=== PATIENT | female | born 1945 | race Caucasian/White ===

== ENCOUNTER 2017-03-24 13:02 | Outpatient (CLI) | payer MEDICARE ==
--- NOTE | 2017-03-24 15:26 | MRI ---
MRI THORACIC SPINE WITHOUT CONTRAST: Date: 03/24/17 HISTORY: Pain the thoracic spine. FINDINGS: The vertebral bodies demonstrate mild heterogeneity in the bone marrow signal. There is minimal ante rior wedging of the superior end plates of the mid thoracic vertebral bodies. No edema is seen to cardoza ggest acute compression fractures. There are degenerative changes in the thoracic spine manifested b y disc osteophyte complexes, costovertebral joint, and facet joint hypertrophic changes. There is mi ld neural foraminal stenosis at T1-2 and T2-3 levels. No significant effacement of the anterior thec al sac or impingement of the thoracic spinal cord is identified. The thoracic spinal cord demonstrat es no evidence of cord edema, syringomyelia, or myelomalacia. IMPRESSION: Thoracic spondylosis with mild neural foraminal stenosis at T1-2 and T2-3 levels, left greater than right. POS: DOMONIQUE
--- NOTE | 2017-03-24 15:42 | MRI ---
MRI OF THE CERVICAL SPINE: Date: 03-24-17 Comparison: None. History: Cervical radiculopathy. Technique: Multiplanar, multisequence MR imaging of the cervical spine provided without contrast. FINDINGS: Incompletely assessed T2 hyperintensity is noted within the imaged middle cranial fossa on the left, which probably represents a partially imaged arachnoid cyst. Please consider head CT for further as sessment. The [facility] imaging demonstrates no focal area of osseous marrow edema within the cervical spine. There is moderate degenerative change at the atlantoaxial interspace. There is no significant cervic al spine anterolisthesis or retrolisthesis seen. No focal area of prevertebral soft tissue abnormali ty noted. C2-3: There is disc desiccation and mild disc space narrowing a mild posterior disc osteophyte compl ex present. There is bilateral facet and uncal vertebral osteophyte formation with mild bilateral ne ural foraminal stenosis. C3-4: There is disc space narrowing and disc desiccation with a small central disc protrusion effaci ng the ventral thecal sac and abutting the ventral aspect of the cord with a mild degree of central canal stenosis. Facet and uncal vertebral osteophyte formation noted bilaterally, primarily right si ded. Mild right neural foraminal stenosis. No left neural foraminal stenosis. C4-5: There is disc desiccation and mild disc bulge with partial effacement of the ventral thecal sa c and minimal central canal stenosis. Bilateral facet and uncal vertebral osteophyte formation noted , right greater than left. There is mild right neural foraminal stenosis. No significant left neural foraminal stenosis. C5-6: There is disc space narrowing and disc desiccation with disc bulge. There is a central annular tear with a small right paracentral disc protrusion. There is effacement of the ventral thecal sac and a mild degree of central canal stenosis. There is bilateral facet and uncal vertebral osteophyte formation, left greater than right. Mild bilateral neural foraminal stenosis noted, left greater th an right. C6-7: There is disc space narrowing and disc desiccation with minimal disc bulge. No significant myla tral canal stenosis. There is prominent left sided facet and uncal vertebral osteophyte formation an d mild right facet and uncal vertebral osteophytes formation. There is mild right and moderate left neural foraminal stenosis. C7-T1: There is disc space narrowing and disc desiccation with minimal disc bulge. No significant ce ntral canal stenosis. Bilateral facet and uncal vertebral osteophyte formation noted with mild/moder ate neural foraminal stenosis, right greater than left. No focal area of signal abnormality is seen within the cervical cord. IMPRESSION: 1. Multilevel degenerative change seen within the cervical spine as described above. 2. Incompletely visualized areas of T2 hyperintensity within the middle cranial fossa on the left. F indings may represent an incompletely imaged arachnoid cyst. Dedicated imaging via head CT is advise dHerve Burroughs POS: DOMONIQUE
== END 2017-03-24 13:03 | disposition home or self-care (01) ==
LOC: SCSMRI 13:02
PROVIDERS: ATTEND Family Medicine
DX: M47.22 Other spondylosis with radiculopathy, cervical region (principal); M54.6 Pain in thoracic spine; M47.894 Other spondylosis, thoracic region
CPT/HCPCS: 72141; 72146